=== PATIENT | female | born 1980 | race Caucasian/White ===

== ENCOUNTER → 2020-08-08 | Outpatient (CLI) | payer BC, OTHER ==
[2020-08-08 12:47] LABS: HEMOGLOBIN 14.1 gm/dl (12.3-15.3); RED BLOOD COUNT 5.08 M/UL (4.00-5.10); WHITE BLOOD COUNT 7.6 K/UL (4.5-11.0)
[2020-08-08 13:02] LABS: BUN/CREATININE RATIO 15 (0-10)
[2020-08-09 07:12] LABS: VITAMIN D, 25-HYDROXY 19.8 ng/mL (30.0-100.0)
[2020-08-09 09:15] LABS: FSH, SERUM 9.5 mIU/mL (.); PROGESTERONE 0.3 ng/mL (.); PROLACTIN 13.4 ng/mL (4.8-23.3); THYROXINE (T4) 8.9 ug/dL (4.5-12.0)
[2020-08-11 08:13] LABS: TESTOSTERONE, FREE, DIRECT 2.1 pg/mL (0.0-4.2)
== END ==
LOC: LAB 12:00
PROVIDERS: Family Medicine
DX: R63.5 Abnormal weight gain (principal); E28.2 Polycystic ovarian syndrome
CPT/HCPCS: 36415; 80053; 80061; 82157; 82607; 83001; 83002; 83036; 84144; 84146; 84402; 84436; 84439; 84443; 84481; 85027

== ENCOUNTER → 2021-09-16 | Outpatient (CLI) | payer BC ==
[2021-09-16 11:44] LABS: HEMOGLOBIN 14.1 gm/dl (12.3-15.3); RED BLOOD COUNT 5.01 M/UL (4.00-5.10); WHITE BLOOD COUNT 9.4 K/UL (4.5-11.0)
[2021-09-16 12:10] LABS: BUN/CREATININE RATIO 14 (0-10)
== END ==
LOC: OPSV 11:10
PROVIDERS: Nurse Practitioner Family
DX: Z01.419 Encounter for gynecological examination (general) (routine) without abnormal findings (principal)
CPT/HCPCS: 36415; 80053; 80061; 83036; 84443; 85027